=== PATIENT | male | born 1945 | race Caucasian/White ===

== ENCOUNTER → 2022-08-16 09:48 | Outpatient (CLI) | payer MEDICARE, SELFPAY ==
--- NOTE | ~2022-08-16 | XR_ITS ---
AP view of the pelvis and AP and lateral views of the bilateral hips Clinical history: Pain Findings: No acute fracture or dislocation is seen. Osseous alignment is anatomic. Bilateral hip and SI joint spaces are preserved. Soft tissues are unremarkable. Impression: No significant abnormality is seen. Reviewed, dictated and finalized at [facility]. ER BATH Impression: No significant abnormality is seen.
== END ==
PROVIDERS: PCP Family Medicine; Visit Provider Nurse Practitioner
DX: M25.552 Pain in left hip (principal); M25.551 Pain in right hip
CPT/HCPCS: 73521

== ENCOUNTER 2022-09-06 14:23 | Outpatient (RCR) | payer MEDICARE, SELFPAY ==
--- NOTE | 2022-09-06 16:02 | PTOPEVDC ---
Assessment and note entered by Haley Nicole, PT, DPT Thank you for referring David Malhotra to [facility].? An evaluation has been completed. No further treatment is needed. Evaluation Information Assessment Status Evaluation Diagnosis back pain Subjective Information Pt states on 05/29/22 he was in [place]. He states he fell on his R hip when trying to get into a bathtub, he states he was able to walk but it hurt . He states he continued after than and was able to walk 2 miles. Since then he reports sporadic and randomized pain in random parts in his back, he reports it is very short and very inconsistent. He states these pains are very short, happen 1-2 times a week, and do not bother him. He states first thing in the morning he is really stiff. He states he has gotten 3 deep tissue massages that have helped with his stiffness and has since then improved his flexibility. He states for years he has done 30 mins of exercises daily, he states he is still able to do this without any issues. He states any stiffness he has decreases with walking . Reported Pain Level Pain Score 0: Self Report Assessment PT Clinical Summary presents to therapy today for his initial evaluation with a diagnosis of katie hip pain and right shoulder pain. Today he demonstrates BLE ROM and strength that is WNL. He demonstrates good lumbar trunk ROM and only reports a minor increase in pain with lateral flexion to the R. He ambulates at a good gait speed and has a minor increase in heel strike on the L. He demonstrates minor increase in tenderness in his lumbar paraspinals on the L. He was instructed in a home exercise and stretching program this date. He does not require skilled therapy services at this time and will be discharged at this time. Plan of Care PT Services Indicated No Treatment Frequency and to be discharged Duration
== END 2022-10-16 11:01 | disposition home or self-care (01) ==
LOC: ANHGOSHPT 14:23
PROVIDERS: PCP Family Medicine; Visit Provider Nurse Practitioner
DX: M25.551 Pain in right hip (principal); M25.552 Pain in left hip; M25.511 Pain in right shoulder
CPT/HCPCS: 97112; 97161; 97530

== ENCOUNTER 2025-04-14 11:37 | Outpatient (CLI) | payer MEDICARE, SELFPAY ==
[2025-04-14 12:32] LABS: Influenza A QL RT-PCR Negative (Negative); Influenza B QL RT-PCR Negative (Negative); RSV RNA, RT-PCR Negative (Negative); SARS-CoV-2 RNA PCR Negative (Negative)
--- OUTSIDE RECORDS SUMMARY | 2025-04-14 13:38 | XMS_ITS | Clinical Summary ---
Author Organization [facility] Address [address] [place] [address] Phone Care Team Providers Care Copy Chaser Name Role Phone Anaya Mcdaniel DO Primary Care Provider [phone] Amanda Winn DESIGN AGENT Unavailable [phone] Allergies Active Allergy Reactions Criticality Noted Date Comments Mold Unknown 06/19/2018 Pollen Extracts Unknown 06/19/2018 Medications ezetimibe (ZETIA) 10 mg tablet TK 1 T PO D 0 05/02/2018 Active azelastine (ASTELIN) 137 mcg (0.1 %) nasal spray U 2 SPRAYS IEN BID 11 2018 Active aspirin 81 mg tablet Take 1 tablet (81 mg total) by mouth daily Active finasteride (PROSCAR) 5 mg tablet Take 1 tablet (5 mg total) by mouth daily Active lisinopriL (PRINIVIL,ZESTRI L) 10 mg tablet 03/26/2023 Act rubin Active Problems Problem Noted Date Diagnosed Date Other hemochromatosis 06/19/2018 Hemochromatosis 06/13/2018 Encounters Date Type Department Care Team Description 02/17/2025 Orders Only [facility] Hematology [address] [place] [address] [place] [address] Amanda Winn NP from Last 3 Months Immunizations Immunization Administration Dates Next Due Influenza, Quadrivalent, Rec ombinant, Egg Free, Preservative Free, Intramuscular 04/22/2019 Influenza, Unspecified 03/30/2018 Pfizer SARS-CoV-2 Monovalent Vaccination (12+ Yrs) PURPLE 10/12/2020,09/21/2020 Pneumococcal, Unspecified 05/19/2017 ZOSTER LIVE 05/19/2017 Surgical History Surgery Date Site/Laterality Comments COLONOSCOPY Medical History Medical History Date Comments Other hemochromatosis Family History Medical History Relation Name Comments Heart disease Mother Relation Name Status Comments Mother Social History Tobacco Use Types Packs/Day Years Used Date Smoking Tobacco: Never Smokeless Tobacco: Never Alcohol Use Standard Drinks/Week Comments Yes 0 (1 standard drink = 0.6 oz pur e alcohol) AUDIT-C Answer Date Recorded Q1: How often do you have a drink containing alc ohol? Monthly or less 09/25/2022 Q2: How many drinks containi ng alcohol do you have on a typical day when you are drinking? 1 or 2 09/25/2022 Frequency of Binge Drinking Not on file 08/31 Sex and Gender Information Value Date Recorded Sex Assigned at Not on file Legal Sex Male 6:36 AM [employer] Gender Identity Not on file Sexual Orientation Not on file Obstetrics History Last Filed Vital Signs Vital Sign Reading Time Taken Comments Blood Pressure 123/78 01/07/2025 12:53 PM CDT Pulse 71 01/07/2025 12:53 PM CDT Temperature 36.4 C (97.6 F) 01/07/2025 12:53 PM CDT Respiratory Rate 16 01/07/2025 12:53 PM CDT Oxygen Saturation 98% 01/07/2025 12:53 PM CDT Inhaled Oxygen Concentration - - Weight 79.9 kg (176 lb 2.4 oz) 01/07/2025 12:53 PM CDT Height 172 cm (5' 7.72) 01/07/2025 12:53 PM CDT w shoes Body Mass Index 27.01 01/07/2025 12:53 PM CDT Plan of Treatment Health Maintenance Due Date Last Done Comments Depression Screening 1944 Fall Risk Assessment 1945 DTaP/Tdap/Td Vaccine (1 - Tdap) 1955 Hepatitis B Screening 1962 Pneumococcal vaccine 65+ (1 of 1 - PCV) 1994 1 Well Visit 65+ 2009 Zoster Vaccine (2 of 3) 07/14/2017 05/19/2017 Covid-19 Vaccine (3 - season) 2024, 09/21/2020 Influenza Vaccine (#1) 2025 04/22/2019, 2017 Procedures Procedure Name Priority Date/Time Associated Diagnosis Comments FERRITIN Routine 02/17/2025 9:13 AM CDT from Last 3 Months Results * Ferritin (02/17/2025 9:13 AM CDT) Ferritin 38 24 - 380 ng/mL [facility] 02/17/2025 9:13 AM CDT 02/17/2025 9:13 AM CDT Narrative [facility] - 02/18/2025 1:40 AM CDT FASTING:YES FASTING: YES Amanda Winn DESIGN AGENT LAB BLOOD ORDERABLES Final Result [facility] [id number] [place] [address] from Last 3 Months Insurance T MEDICARE PENDING SALE TO [employer] [facility] MEDICARE Care Teams Copy Chaser Relationship Specialty Start Date End Date Anaya Mcdaniel DO PCP - General Family Medicine 02/16/20 Amanda Winn NP [address] [place] [address] Nurse Practitioner Nurse Practitioner 10/08/23
== END 2025-04-14 11:38 | disposition home or self-care (01) ==
PROVIDERS: PCP Family Medicine; Visit Provider Family Medicine
DX: R50.9 Fever, unspecified (principal); Z20.822 Contact with and (suspected) exposure to COVID-19; Z11.59 Encounter for screening for other viral diseases
CPT/HCPCS: 87637